=== PATIENT | female | born 1945 | race Caucasian/White ===

== ENCOUNTER 2020-01-26 09:25 | Emergency (ER) | payer MEDICARE, OTHER ==
[~2020-01-26] VITALS: Ht 165.1 cm; Wt 49.1 kg
[~2020-01-26 09:25] MED LIST: DOCU100C33 PO; TRAM-47 PO
--- NOTE | 2020-01-26 09:50 | NUR ---
Assumed care of patient . [facility] at [facility] on Wednesday. Reduced in ED that day. ORIF of right wrist on Wednesday. Here today with C/O of numbness and ecchymosis. Able to move fingers. NAD. Will continue to monitor.
--- NOTE | 2020-01-26 10:05 | NUR ---
Wrapped forearm in warm blanket to promote blood flow.
--- NOTE | 2020-01-26 10:59 | NUR ---
Resting in [facility]. VSS. No needs.
[2020-01-26 12:01] VITALS: BP 135/82
--- NOTE | 2020-01-26 12:08 | NUR ---
Patient/Caregiver given discharge instructions and they have confirmed that they understand the instructions. Patient ambulatory with steady gait.
== END 2020-01-26 12:11 | disposition home or self-care (01) ==
LOC: ED 10:18
DX: M79.601 Pain in right arm (principal); M25.531 Pain in right wrist
CPT/HCPCS: 99281